=== PATIENT | male | born 1960 | race Caucasian/White ===

== ENCOUNTER → 2019-04-27 17:13 | Outpatient (CLI) | payer OTHER, SELFPAY ==
--- NOTE | ~2019-04-27 | XR_ITS ---
XR thoracic spine 3V 04/27/2019 17:34 Indication: Back pain Procedure: 3 views of the thoracic spine Comparison: 10/20/2018 Findings: Mild thoracic spondylosis with bridging osteophytes at multiple lower thoracic spine levels . Pedicles intact. No paraspinal soft tissue abnormality. Surrounding osseous structures are unremark able. No paraspinal soft tissue abnormality. No acute fracture or traumatic malalignment. Impression: 1: Mild thoracic spondylosis. Reviewed, dictated and finalized at location A. LTY CANDY MAKER Impression: 1: Mild thoracic spondylosis.
== END ==
PROVIDERS: PCP Family Medicine; Visit Provider Family Medicine
DX: M47.894 Other spondylosis, thoracic region (principal)
CPT/HCPCS: 72072

== ENCOUNTER 2019-05-04 14:21 | Outpatient (CLI) | payer OTHER, SELFPAY ==
--- NOTE | ~2019-05-04 | CT_ITS ---
EXAMINATION: CT abdomen pelvis wo con DATE: 05/04/2019 14:50 INDICATION: Acute right flank pain TECHNIQUE: Computed tomography (CT) of the abdomen and pelvis was performed without intravenous contr ast. Automated exposure control and iterative reconstruction technique were employed. Exam dose: 914 .88 mGy-cm total exam DLP. COMPARISON: 06/23/2009 CT abdomen pelvis FINDINGS: There is discoid atelectasis and/or scarring at the lung bases. Normal heart size. No pericardial or pleural effusion. Status post cholecystectomy. No bile duct or pancreatic duct dilatation. No hepatic, splenic, pancrea tic, adrenal or renal space-occupying mass lesion is evident on this limited noncontrast examination. No urinary tract calculus or hydroureteronephrosis. Normal caliber of the abdominal aorta. No intraperitoneal or retroperitoneal or pelvic mass lesion or adenopathy or ascites is detected. Mild prostate enlargement and calcification. The urinary bladder is unremarkable. There is a dog ear of the right side of the urinary bladder at the right inguinal area. Small fat-containing right ingui nal hernia. No bowel obstruction or intraperitoneal free air. Small fat-containing umbilical hernia. Diffuse idiopathic skeletal hyperostosis of the thoracic and lumbar spine. No suspicious osteolytic o r osteoblastic lesions are noted. IMPRESSION: No urinary tract calculus or hydroureteronephrosis is detected Status post cholecystectomy Reviewed, dictated and finalized at Location A. Reviewed, dictated and finalized at location B. [employer]OR [employer]GICAL
== END 2019-05-04 14:22 | disposition home or self-care (01) ==
PROVIDERS: PCP Family Medicine; Visit Provider Family Medicine
DX: R10.9 Unspecified abdominal pain (principal); Z90.49 Acquired absence of other specified parts of digestive tract
CPT/HCPCS: 74176

== ENCOUNTER 2020-11-24 10:27 | Outpatient (RCR) | payer OTHER, SELFPAY ==
[2020-11-24 10:39] VITALS: BP 127/65; PULSE 88; RESP 18; TEMP 36.4; O2SAT 94
[2020-11-24] MEDS: ACETAMINOPHEN 325 MG TABLET 650 MG PO (10:40)
[2020-11-24] MEDS: diphenhydrAMINE HCl CAP 25 MG CAPSULE PO (10:41)
[2020-11-24] MEDS: FAMOTIDINE 20 MG TABLET PO (10:41)
--- NOTE | 2020-11-24 10:58 | PC.NURSE ---
Patient states he has not received any COVID vaccinations and he does not intend to in the future.
[2020-11-24 12:18] VITALS: BP 117/66; PULSE 69; RESP 18; TEMP 36.3; O2SAT 96
--- NOTE | 2020-11-25 10:37 | PC.NURSE ---
Called patient to follow-up on yesterday's antibody infusion. Patient states he has a headache and upset stomach. RN recommended he take Tylenol and Benadryl as directed on discharge paperwork and patient verbalized understanding.
== END 2020-11-24 16:00 | disposition home or self-care (01) ==
LOC: AMCINF 10:27
PROVIDERS: PCP Family Medicine; Visit Provider Internal Medicine Hematology & Oncology
DX: Z23 Encounter for immunization (principal); U07.1 COVID-19; I10 Essential (primary) hypertension; E11.9 Type 2 diabetes mellitus without complications
CPT/HCPCS: A9270; J7050; M0243

== ENCOUNTER 2020-11-26 23:04 | Inpatient (IN) | payer OTHER, SELFPAY ==
--- NOTE | ~2020-11-26 | XR_ITS ---
XR chest 1V portable DATE: 11/26/2020 23:40 INDICATION: Dyspnea TECHNIQUE: Portable upright AP chest on 11/18/2020 at 23 30 cm COMPARISON: 03/16/2015 two-view chest FINDINGS: Extensive diffuse bilateral patchy pulmonary infiltrates are noted, consistent with severe bilateral multifocal pneumonia. Normal heart size. No pleural effusion. No pneumothorax. Degenerative spurring of the thoracic spine. IMPRESSION: Extensive diffuse patchy bilateral pulmonary infiltrates consistent with multifocal bilat eral lung, likely due to Covid 19 Reviewed, dictated and finalized at location A. IMPRESSION: Extensive diffuse patchy bilateral pulmonary infiltrates consistent with multifocal bilateral lung, likely due to Covid 19
--- NOTE | ~2020-11-26 | CT_ITS ---
EXAMINATION: CTA chest PE protocol DATE: 11/27/2020 00:46 INDICATION: Dyspnea TECHNIQUE: Computed tomography (CT) pulmonary angiogram of the chest was performed with 100 mL Omnipa que-350 intravenous contrast. Additional 3D reconstructions utilizing coronal maximum intensity proje ction (MIP) were performed. Automated exposure control and iterative reconstruction technique were em ployed. The dose-length product was 1013.75 mGy-cm. COMPARISON: None FINDINGS: Excellent contrast opacification of the pulmonary arteries. There is mild streak artifact from dense contrast in the superior vena cava and right atrium. Mild scattered respiratory motion artifact which decreases sensitivity in some of the smaller subsegmental pulmonary arteries in the lower lung zones . No pulmonary embolism. Extensive patchy groundglass opacities throughout both lungs suspicious for COVID pneumonia. Differential would include less likely pulmonary edema. No pleural effusion or pneum othorax. Heart size is normal. No pericardial effusion. Thoracic aorta is normal in caliber with no d issection. Mild mediastinal and right hilar lymphadenopathy which is likely reactive. Systemic clips the gallbladder fossa. There are bridging osteophytes at multiple levels in the spine, consistent wit h diffuse idiopathic skeletal hyperostosis (DISH). IMPRESSION: 1. No pulmonary embolism. 2. Extensive patchy groundglass opacities throughout both lungs and favor COVID pneumonia over pulmon sandrine edema. 3. Likely reactive mediastinal and right hilar lymphadenopathy. Reviewed, dictated and finalized at location A. IMPRESSION: 1. No pulmonary embolism. 2. Extensive patchy groundglass opacities throughout both lungs and favor COVID pneumonia over pulmonary edema. 3. Likely reactive mediastinal and right hilar lymphadenopathy.
--- NOTE | ~2020-11-26 | CT_ITS ---
EXAMINATION: CT abdomen pelvis w con EXAM DATE: 11/28/2020 09:49 INDICATION: RUQ and flank pain. TECHNIQUE: Spiral CT of the abdomen and pelvis was performed following intravenous injection of 100 m L Omnipaque 350. Axial, coronal and sagittal images of the abdomen and pelvis were reviewed. The do se-length product (DLP) for this examination was 895.76 mGy-cm. The exposure was tailored according to patient size (auto mA exposure control), and iterative reconstruction (ASIR) was used as additiona l dose reduction technique. Comparison is made to prior examination from 06/23/2009, 05/04/2019. FINDINGS: The liver, spleen, adrenal glands and pancreas are unremarkable. There are cholecystectomy clips. There is 1.5 cm hypodensity upper pole right kidney, most likely cyst with septation. No hyd ronephrosis. The prostate is unremarkable. There is small right inguinal fat-containing hernia. Th e bladder is unremarkable. There is no retroperitoneal or pelvic lymphadenopathy. There is mild sc attered arteriosclerotic disease. Small umbilical fat-containing hernia. There are no findings to suggest appendicitis. There is mild to moderate scattered colonic diverticul osis. There is no adjacent inflammatory change to suggest diverticulitis. The stomach and small marita l are unremarkable. There is expected amount of colonic stool. No free intraperitoneal gas. The heart is normal in size. There are no pericardial or pleural effusions. Bilateral patchy peripheral predominant groundglass opacities Appearance is typical of early stage C OVID 19 pneumonia. Less likely acute possibilities include influenza, pulmonary edema or hemorrhage. Please clinically correlate and test as appropriate. IMPRESSION Patchy bilateral groundglass airspace disease probably COVID 19 pneumonia given community prevalence. Less likely possibilities above. There are no osteoblastic or osteolytic lesions identif ied. IMPRESSION: 1. Basilar groundglass opacity suspicious for COVID pneumonia. 2. Small umbilical, and right inguinal fat-containing hernias. 3. Scattered colonic diverticulosis. Reviewed, dictated and finalized at location B. IMPRESSION Patchy bilateral groundglass airspace disease probably COVID 19 pne umonia given community prevalence. Less likely possibilities above. There are n o osteoblastic or osteolytic lesions identified.
--- NOTE | ~2020-11-26 | XR_ITS ---
EXAMINATION: XR chest 1V portable INDICATION: Chest pain and cough TECHNIQUE: Portable AP chest at 0541 hours COMPARISON: 11/26/2020 FINDINGS: There are diffuse opacities throughout all lung zones with interval worsening in the right lung. No pleural effusion or pneumothorax is identified. The cardiomediastinal silhouette is normal. IMPRESSION: 1. Diffuse lung disease with interval worsening, likely worsening COVID 19 pneumonia. Reviewed, dictated and finalized at location A. IMPRESSION: 1. Diffuse lung disease with interval worsening, likely worsening COVID 19 pneu monia.
[2020-11-26 23:26] VITALS: BP 135/74; PULSE 94; RESP 22; TEMP 36.8; O2SAT 93
--- NOTE | 2020-11-26 23:30 | ECG_ITS ---
Measurements Intervals [place] Rate: 92 P: 49 TX: 181 QRS: 56 QRSD: 88 T: 37 QT: 345 QTc: 428 Interpretive Statements SINUS RHYTHM INCOMPLETE RIGHT BUNDLE BRANCH BLOCK BORDERLINE ECG Electronically Signed On 11-27-2020 8:25:53 CDT by Yemi Morales D.O.
[2020-11-26 23:33] VITALS: RESP 17
[2020-11-26 23:38] VITALS: PULSE 95; RESP 26; O2SAT 93
[2020-11-26 23:45] VITALS: PULSE 87; RESP 24; O2SAT 92
[2020-11-26 23:46] VITALS: BP 125/80; PULSE 89; RESP 22; O2SAT 93
[2020-11-26 23:49] VITALS: PULSE 89
--- NOTE | 2020-11-26 23:55 | ED.WEAKNESS ---
HPI - Weakness General Chief complaint: Weakness Stated complaint: covid+ going down hill Time Seen by Provider: 11/26/20 23:32 Source: RN notes reviewed History of Present Illness HPI Narrative: Patient presents emergency department from home for weakness and shortness of breath. Patient states he tested positive with Covid 14 days ago. He states that he has had continued weakness and dyspnea that have worsened today he states that he had initially been on a Z-Pablo as well as ivermectin and steroids but is no longer on these he states he has been having intermittent fever for which he has been taking Tylenol he denies any abdominal pain nausea vomiting chest pain or any other symptoms he states he does not have any Related Data Home Medications Medication Instructions Recorded Confirmed simvastatin 10 mg tablet 10 mg PO DAILY 02/12/19 11/24/20 Allergies Allergy/AdvReac Type Severity Reaction Status Date / Time No Known Allergies Allergy Verified 11/24/20 10:52 Review of Systems Review of Systems: Gen.: Reports intermittent fever ENT: Denies congestion Respiratory: Shortness of breath CV: Denies chest pain or palpitations GI: Denies abdominal pain nausea, emesis or diarrhea Musculoskeletal: Denies back pain or muscle pain Neuro: Denies numbness, tingling, weakness or focal weakness Skin: Denies rash Except as documented, all other systems reviewed and negative [facility] Past Medical History Medical History Acute abdominal pain in right flank Acute bronchitis Acute non-recurrent maxillary sinusitis Bleeding from the nose Chronic left shoulder pain Chronic thoracic back pain Colon cancer screening Controlled diabetes mellitus type II without complication COVID-19 (11/15/20) rapid test positive on 11/18/2020 Diabetes Elevated liver enzymes Encounter for prostate cancer screening Essential (primary) hypertension Insomnia Mixed hyperlipidemia GALARZA (nonalcoholic steatohepatitis) Otitis externa Seasonal allergic rhinitis SOS (sinusoidal obstruction syndrome) Tinea pedis UTI (urinary tract infection) Vision loss Surgical History Surgical History (Updated 02/24/19 @ 09:40 by Tarsha Barber) H/O repair of rotator cuff Family History Family History Father Patient's father is , Onset Age: 82 Family history of malignant neoplasm Sibling Patient's brother is , Onset Age: 58 Mother Cerebrovascular accident, Onset Age: 77 Grandparent Cerebrovascular accident, Onset Age: 58 Family history of malignant neoplasm Other Diabetes mellitus Family history of arthritis Family history of cardiovascular disease Social History Social History Smoking packs per day: 3 Smoking cigarettes per day: 60.0 Years smoked: 40 Smoking pack-years: 120.00 Smoking status: Former smoker Tobacco type: cigarettes and cigars Smoking end date: 04/01/02 Additional smoking assessment comments: 2 packs of cigarettes and 1 pack cigars every day Alcohol intake: current Spiritual care concerns: No Exam Narrative: APPEARANCE: No acute distress, nontoxic, resting in bed EYES: EOMI HEENT: Normocephalic, atraumatic, OMM RESPIRATORY: No respiratory distress Clear to auscultation bilaterally with no rhonchi wheezing or rales. CARDIOVASCULAR: Regular rate and rhythm without murmurs rubs or gallops. ABDOMINAL: Soft, nontender, nondistended, no rebound or guarding MUSCULOSKELETAl: Moves all extremities. No clubbing, cyanosis or edema. NEURO: Awake and alert. Following commands, speech normal, no focal deficits SKIN:: Warm, dry. No rashes lesions or abrasions PSYCHIATRIC: Normal affect/mood, Course Course Emergency Course: Patient with walking pulse ox in ED with oxygen saturations down into 87-88 will admit at this
[2020-11-27] VITALS (22 sets, daily range): BP systolic 122–145; BP diastolic 69–87; PULSE 77–97; RESP 17–31; TEMP 36.1–37.4; O2SAT 88–95; BMI 32.6
[2020-11-27 00:02] LABS: Basophils Percent Auto 0.3 % (0.2-1.2); Eosinophils Percent Auto 0.3 % (0-4.4); Hemoglobin 15.2 g/dL (14.0-18.0); Immature Granulocyte Absolute 0.09 K/mm3 (0.00-0.031); Immature Granulocyte Percent A 1.4 % (0-0.5); Immature Platelet Fraction Pct 11.5 % (0.9-11.2); Lymphocytes Absolute Auto 1.65 K/mm3 (0.9-3.2); Lymphocytes Percent Auto 25.9 % (18.3-44.2); Mean Corpuscular HGB Conc 34.5 g/dl (32-36); Mean Corpuscular Hemoglobin 29.6 pg (26-34); Mean Corpuscular Volume 85.8 fl (80-100); Monocytes Absolute Auto 0.5 K/mm3 (0.1-0.6); Monocytes Percent Auto 7.9 % (2.6-8.5); Neutrophils Absolute Auto 4.1 K/mm3 (1.3-6.7); Neutrophils Percent Auto 64.2 % (45.5-73.1); Red Blood Count 5.13 M/mm3 (4.6-6.20); Red Cell Distribution Width 12.2 % (11.5-14.5); White Blood Count 6.4 K/mm3 (4.5-10.0)
[2020-11-27 00:14] LABS: Alanine Aminotransferase 101 U/L (4-50); Albumin Level 3.8 g/dL (3.5-5.1); Alkaline Phosphatase 51 U/L (38-126); Anion Gap 7 mmol/L (8-16); Aspartate Amino Transferase 109 U/L (17-59); Bilirubin,Total 0.7 mg/dL (0.2-1.3); Blood Urea Nitrogen 8 mg/dL (9-20); Calcium 8.4 mg/dL (8.4-10.2); Carbon Dioxide 25 mmol/L (22-30); Chloride 95 mmol/L (98-107); Estimated CRCL calculation 134 ml/min; Estimated Glomerular Filt Rate > 60; Glucose 183 mg/dL (65-110); INR 0.9; Lactic Acid Reflex 1.2 mmol/L (0.7-2.1); Potassium 3.7 mmol/L (3.4-5.0); Prothrombin Time 12.4 Seconds (11.1-14.7); Sodium 127 mmol/L (137-145)
[2020-11-27 00:15] LABS: Partial Thromboplastin Time 28.4 SECONDS (22.3-36.8)
[2020-11-27 00:17] LABS: CRP 4.2 mg/dL (<1.0); D Dimer 1.32 ug/mL (<0.48); Lactate Dehydrogenase 1707 U/L (313-618)
--- NOTE | 2020-11-27 02:40 | PC.NURSE ---
pt amblated by fur feeder. O2 sats dropped to 88% on RA. Pt placed on 2L O2 per nc per verbal order from ED MD.
--- NOTE | 2020-11-27 04:00 | PC.NURSE ---
This patient, Ervin Fuentes, was admitted to 3 [facility] Surg Room 328-01 @0355. Patient/family oriented to hospital policies and general routines including ID bracelet, bed and alarms, visiting hours, pain management, procedures, bathroom and other care routines, personal items, smoking policy, room service/diet, and visiting hours. Information on how to activate the Rapid Response Team has been discussed. Patient/Family are encouraged to report perceived risks to care and to ask questions if they do not understand what they are told or what they should do.
[2020-11-27] MEDS: ALBUTEROL SULFATE (*SP) AEROSOL 1 PUFF 2 PUFF INHALATION ×4 (04:03→20:57)
--- NOTE | 2020-11-27 08:39 | PM.IMHP ---
H&P: HPI History of Present Illness Date/Time: 11/27/20 08:39 Chief Complaint: Shortness of breath and weakness Narrative: This is a very pleasant 52-year-old gentleman with past medical history of type 2 diabetes mellitus, hypertension, hyperlipidemia, nonalcoholic steatohepatitis, who presented to the emergency department last night with weakness and shortness of breath that have progressed over the past 4 days. He was diagnosed with COVID-19 on 11/15. He reportedly was on her with azithromycin as well as ivermectin at some point but continued to have shortness of breath. He also tells me he developed some right upper quadrant abdominal pain and feels quite tender. No nausea or vomiting. No chest pain. Intermittent cough. On presentation to the emergency department he had saturation of oxygen 87-88%. He was placed on oxygen by nasal cannula with improvement and has pulse oximetry to the 90s. His initial blood work showed hemoglobin 15.2, WBC 6.4, INR 0.9, sodium 137, potassium 3.7, chloride 95, bicarb 25, anion gap 7, BUN 8, creatinine 0.7, calcium 8.4 AST 109, ALT 101, total bilirubin 0.7, alk-phos 51, albumin 3.8. His initial blood pressure was 135/74 with a heart rate of 94. He was afebrile. Review of Systems Review of Systems: All systems reviewed & are unremarkable except as noted in HPI and below PMFSH Past Medical History Medical History Acute abdominal pain in right flank Acute bronchitis Acute non-recurrent maxillary sinusitis Bleeding from the nose Chronic left shoulder pain Chronic thoracic back pain Colon cancer screening Controlled diabetes mellitus type II without complication COVID-19 (11/15/20) rapid test positive on 11/18/2020 Diabetes Elevated liver enzymes Encounter for prostate cancer screening Essential (primary) hypertension Insomnia Mixed hyperlipidemia GALARZA (nonalcoholic steatohepatitis) Otitis externa Seasonal allergic rhinitis SOS (sinusoidal obstruction syndrome) Tinea pedis UTI (urinary tract infection) Vision loss Surgical History Surgical History H/O repair of rotator cuff Family History Family History Father Patient's father is , Onset Age: 82 Family history of malignant neoplasm Sibling Patient's brother is , Onset Age: 58 Mother Cerebrovascular accident, Onset Age: 77 Grandparent Cerebrovascular accident, Onset Age: 58 Family history of malignant neoplasm Other Diabetes mellitus Family history of arthritis Family history of cardiovascular disease Social History Social History Smoking packs per day: 3 Smoking cigarettes per day: 60.0 Years smoked: 40 Smoking pack-years: 120.00 Smoking status: Former smoker Tobacco type: cigarettes Alcohol intake: never Substance use: never Gender identity (if verbalized by the patient): Male Spiritual care concerns: No Meds Home Medications and Allergies Home Medications Medication Instructions Recorded Confirmed Type simvastatin 10 mg tablet 10 mg PO DAILY 02/12/19 11/27/20 History irbesartan 150 mg tablet 150 mg PO DAILY #90 tablet 10/21/20 11/27/20 Rx albuterol sulfate 2 inh INHALATION Q4H PRN 11/27/20 11/27/20 History metformin 500 mg PO BID 11/27/20 11/27/20 History zolpidem 10 mg PO HS PRN 11/27/20 11/27/20 History Allergies Allergy/AdvReac Type Severity Reaction Status Date / Time No Known Allergies Allergy Verified 11/24/20 10:52 Vital Signs Vital Signs - 24 hr 11/26/20 23:26 11/26/20 23:33 11/26/20 23:38 Temperature 98.3 F Pulse Rate 94 95 Respiratory Rate 22 H 17 26 H Blood Pressure 135/74 Pulse Oximetry 93 93 11/26/20 23:45 11/26/20 23:46 11/26/20 23:49 Temperature Pulse R
[2020-11-27] MEDS: SODIUM CHLORIDE 0.9% IV 1,000 ML 75 ML IV CONT ×2 (10:19→23:49)
[2020-11-27] MEDS: ENOXAPARIN 40 MG/0.4 ML SYRINGE SUB-Q (10:20)
[2020-11-27] MEDS: IRBESARTAN 150 MG TABLET PO (10:20)
[2020-11-27] MEDS: SIMVASTATIN 10 MG TABLET PO (10:20)
[2020-11-27 12:52] LABS: Glucose Point of Care 191 mg/dl (65-105)
[2020-11-27 16:31] LABS: Glucose Point of Care 232 mg/dl (65-105)
[2020-11-27 17:41] LABS: Procalcitonin 0.1 ng/mL
[2020-11-27] MEDS: INSULIN ASPART (*BKC) 100 UNITS/ML SUB-Q (17:42)
[2020-11-28] VITALS (10 sets, daily range): BP systolic 103–157; BP diastolic 53–86; PULSE 66–99; RESP 18–20; TEMP 36.1–37.2; O2SAT 86–97
[2020-11-28] MEDS: ALBUTEROL SULFATE (*SP) AEROSOL 1 PUFF 2 PUFF INHALATION ×4 (01:09→21:59)
[2020-11-28 01:41] LABS: Glucose Point of Care 248 mg/dl (65-105)
[2020-11-28 06:44] LABS: Basophils Percent Auto 0.4 % (0.2-1.2); Eosinophils Percent Auto 0.1 % (0-4.4); Hematocrit 41.5 % (42.0-52.0); Hemoglobin 13.8 g/dL (14.0-18.0); Immature Granulocyte Absolute 0.13 K/mm3 (0.00-0.031); Immature Granulocyte Percent A 1.6 % (0-0.5); Immature Platelet Fraction Pct 16.6 % (0.9-11.2); Lymphocytes Absolute Auto 1.44 K/mm3 (0.9-3.2); Lymphocytes Percent Auto 18.1 % (18.3-44.2); Mean Corpuscular HGB Conc 33.3 g/dl (32-36); Mean Corpuscular Hemoglobin 29.2 pg (26-34); Mean Corpuscular Volume 87.9 fl (80-100); Mean Platelet Volume 11.1 fl (7.4-10.4); Monocytes Absolute Auto 0.6 K/mm3 (0.1-0.6); Monocytes Percent Auto 7.8 % (2.6-8.5); Neutrophils Absolute Auto 5.7 K/mm3 (1.3-6.7); Platelet Count Result 51 k/mm3 (150-375); Red Blood Count 4.72 M/mm3 (4.6-6.20); Red Cell Distribution Width 11.9 % (11.5-14.5)
[2020-11-28 07:06] LABS: Alanine Aminotransferase 85 U/L (4-50); Albumin Level 3.6 g/dL (3.5-5.1); Alkaline Phosphatase 46 U/L (38-126); Anion Gap 9 mmol/L (8-16); Aspartate Amino Transferase 74 U/L (17-59); Bilirubin,Total 0.9 mg/dL (0.2-1.3); Blood Urea Nitrogen 9 mg/dL (9-20); CRP 7.9 mg/dL (<1.0); Calcium 8.1 mg/dL (8.4-10.2); Carbon Dioxide 24 mmol/L (22-30); Chloride 100 mmol/L (98-107); Estimated CRCL calculation 123 ml/min; Estimated Glomerular Filt Rate > 60; Glucose 187 mg/dL (65-110); Lactate Dehydrogenase 1298 U/L (313-618); Potassium 3.9 mmol/L (3.4-5.0); Sodium 133 mmol/L (137-145)
[2020-11-28 08:14] LABS: Glucose Point of Care 185 mg/dl (65-105)
[2020-11-28] MEDS: SIMVASTATIN 10 MG TABLET PO (10:20)
[2020-11-28] MEDS: IRBESARTAN 150 MG TABLET PO (10:21)
[2020-11-28] MEDS: ENOXAPARIN 40 MG/0.4 ML SYRINGE SUB-Q (11:59)
[2020-11-28 12:25] LABS: Glucose Point of Care 190 mg/dl (65-105)
--- NOTE | 2020-11-28 12:45 | PM.IMPN ---
Progress Note: A&P Assessment and Plan (1) Acute respiratory failure with hypoxia: Code(s): J96.01 - Acute respiratory failure with hypoxia Status: Acute Assessment and Plan: Chest x-ray on presentation with extensive bilateral patchy pulmonary infiltrates O2 support for hypoxemia Supportive measures Monitor resp status Continue home albuterol inhaler (2) COVID-19: Code(s): U07.1 - COVID-19 Status: Acute Assessment and Plan: Dexamethasone Outside window for Remdisivir O2 support for hypoxemia Supportive measures Monitor resp status (3) Acute abdominal pain in right flank: Code(s): R10.9 - Unspecified abdominal pain Status: Acute Assessment and Plan: This is of new onset. CT scan of the abdomen 11/11 show acute findings. Abdominal pain improved. (4) Controlled diabetes mellitus type II without complication: Qualifiers: Diabetes mellitus termite renewal inspector insulin use: without residential use Qualified Code(s): E11.9 - Type 2 diabetes mellitus without complications Code(s): E11.9 - Type 2 diabetes mellitus without complications Status: Acute Assessment and Plan: Hold metformin for now. SSI Glucose AccuChecks Hemoglobin A1c 7. (5) Essential (primary) hypertension: Code(s): I10 - Essential (primary) hypertension Status: Acute Assessment and Plan: Continue home Irbestartan (6) Mixed hyperlipidemia: Code(s): E78.2 - Mixed hyperlipidemia Status: Acute Assessment and Plan: Continue home Simvastatin (7) Full code status: Code(s): Z78.9 - Other specified health status Status: Acute Assessment and Plan: Discussed on admission (8) DVT prophylaxis: Code(s): Z29.9 - Encounter for prophylactic measures, unspecified Status: Acute Assessment and Plan: Lovenox Subjective Date/time seen: 11/28/20 12:45 Feels better, shortness of breath improved, he is down to 7 L of oxygen by nasal cannula. Hemodynamically stable. Afebrile. Review of Systems Review of Systems: All systems reviewed & are unremarkable except as noted in HPI and below Exam Narrative: Gen: Alert, NAD Abd: Soft, TTP RUQ Heart: RRR Lungs: CTAB Ext: No bilateral lower extremity edema Objective Data Vital Signs Vital Signs: Vital Signs - 24 hr 11/27/20 13:40 11/27/20 14:11 11/27/20 16:00 Temperature 98.6 F 98.6 F Pulse Rate 96 94 Respiratory Rate 20 20 Blood Pressure 145/77 H 137/69 Pulse Oximetry 90 93 90 11/27/20 20:00 11/27/20 21:05 11/28/20 00:00 Temperature 96.9 F L 97.1 F L Pulse Rate 81 87 92 Respiratory Rate 20 20 Blood Pressure 145/76 H 134/74 Pulse Oximetry 93 91 96 11/28/20 01:12 11/28/20 04:00 11/28/20 08:00 Temperature 97 F L 98.9 F Pulse Rate 80 77 73 Respiratory Rate 20 20 Blood Pressure 132/86 124/69 Pulse Oximetry 92 91 11/28/20 10:03 11/28/20 10:19 11/28/20 12:00 Temperature 98.1 F Pulse Rate 87 Respiratory Rate 20 Blood Pressure 103/53 L Pulse Oximetry 86 L 91 93 Intake/Output Intake/Output: Intake & Output 11/25/20 11/26/20 11/27/20 11/28/20 23:59 23:59 23:59 23:59 Intake Total 2920 1040 Output Total 900 1600 Balance 2020 -560 Meds/Results Medications: Active Medications Generic Name Dose Route Start Last Admin Trade Name Freq PRN Reason Stop Dose Admin Acetaminophen 650 mg 11/27/20 08:52 Acetaminophen 325 Mg Tablet PO Q4H PRN Mild Pain (1-3) or Fever Albuterol 2 puff 11/27/20 08:00 11/28/20 10:02 Albuterol Sulfate (*Sp) Aerosol 1 Puff INHALATION 2 puff Q6HRT AMY Administration Albuterol 2 puff 11/27/20 08:56 Albuterol Sulfate (*Sp) Aerosol 1 Puff INHALATION Q4H PRN shortness of breath or wheezing Dexamethasone Sodium Phosphate 6 mg 11/27/20 09:00 11/28/20 10:21 Dexamethasone Sod Phos Inj 10 Mg/Ml 1 Ml Vial IV PUSH
[2020-11-28 16:49] LABS: Glucose Point of Care 280 mg/dl (65-105)
[2020-11-28] MEDS: INSULIN ASPART (*BKC) 100 UNITS/ML SUB-Q (17:18)
[2020-11-29] VITALS (9 sets, daily range): BP systolic 112–156; BP diastolic 63–87; PULSE 71–112; RESP 16–20; TEMP 36.3–37.2; O2SAT 92–97
[2020-11-29] MEDS: ALBUTEROL SULFATE (*SP) AEROSOL 1 PUFF 2 PUFF INHALATION ×4 (02:36→20:47)
[2020-11-29 03:23] LABS: Glucose Point of Care 273 mg/dl (65-105)
[2020-11-29 06:57] LABS: Basophils Percent Auto 0.3 % (0.2-1.2); Eosinophils Percent Auto 0.2 % (0-4.4); Hematocrit 44.4 % (42.0-52.0); Hemoglobin 14.9 g/dL (14.0-18.0); Immature Granulocyte Absolute 0.16 K/mm3 (0.00-0.031); Immature Granulocyte Percent A 1.6 % (0-0.5); Immature Platelet Fraction Pct 11.5 % (0.9-11.2); Lymphocytes Absolute Auto 1.73 K/mm3 (0.9-3.2); Lymphocytes Percent Auto 17.4 % (18.3-44.2); Mean Corpuscular HGB Conc 33.6 g/dl (32-36); Mean Corpuscular Hemoglobin 29.2 pg (26-34); Mean Corpuscular Volume 86.9 fl (80-100); Monocytes Absolute Auto 0.7 K/mm3 (0.1-0.6); Monocytes Percent Auto 6.8 % (2.6-8.5); Neutrophils Absolute Auto 7.3 K/mm3 (1.3-6.7); Neutrophils Percent Auto 73.7 % (45.5-73.1); Platelet Count Result 46 k/mm3 (150-375); Red Blood Count 5.11 M/mm3 (4.6-6.20); Red Cell Distribution Width 11.8 % (11.5-14.5)
[2020-11-29 07:10] LABS: Alanine Aminotransferase 103 U/L (4-50); Albumin Level 3.9 g/dL (3.5-5.1); Alkaline Phosphatase 50 U/L (38-126); Anion Gap 9 mmol/L (8-16); Aspartate Amino Transferase 79 U/L (17-59); Bilirubin,Total 0.7 mg/dL (0.2-1.3); Blood Urea Nitrogen 10 mg/dL (9-20); Calcium 8.7 mg/dL (8.4-10.2); Carbon Dioxide 25 mmol/L (22-30); Chloride 97 mmol/L (98-107); Estimated CRCL calculation 123 ml/min; Estimated Glomerular Filt Rate > 60; Glucose 178 mg/dL (65-110); Potassium 3.8 mmol/L (3.4-5.0); Sodium 131 mmol/L (137-145)
[2020-11-29 08:06] LABS: Glucose Point of Care 162 mg/dl (65-105)
[2020-11-29] MEDS: IRBESARTAN 150 MG TABLET PO (08:14)
[2020-11-29] MEDS: SIMVASTATIN 10 MG TABLET PO (08:14)
[2020-11-29] MEDS: ENOXAPARIN 40 MG/0.4 ML SYRINGE SUB-Q (08:14)
[2020-11-29 08:30] LABS: Platelet Clumps Present; Platelet Estimate Decreased (Adequate)
[2020-11-29 11:57] LABS: Glucose Point of Care 246 mg/dl (65-105)
[2020-11-29] MEDS: INSULIN ASPART (*BKC) 100 UNITS/ML SUB-Q ×2 (12:03→17:41)
--- NOTE | 2020-11-29 12:16 | PM.IMPN ---
Progress Note: A&P Assessment and Plan (1) Acute respiratory failure with hypoxia: Code(s): J96.01 - Acute respiratory failure with hypoxia Status: Acute Assessment and Plan: Chest x-ray on presentation with extensive bilateral patchy pulmonary infiltrates O2 support for hypoxemia Supportive measures Monitor resp status Continue home albuterol inhaler (2) COVID-19: Code(s): U07.1 - COVID-19 Status: Acute Assessment and Plan: Dexamethasone Outside the window for Remdisivir O2 support for hypoxemia Supportive measures Monitor resp status (3) Acute abdominal pain in right flank: Code(s): R10.9 - Unspecified abdominal pain Status: Acute Assessment and Plan: This is of new onset. CT scan of the abdomen 11/11 show acute findings. Abdominal pain improved. (4) Controlled diabetes mellitus type II without complication: Qualifiers: Diabetes mellitus fci insulin use: without fci use Qualified Code(s): E11.9 - Type 2 diabetes mellitus without complications Code(s): E11.9 - Type 2 diabetes mellitus without complications Status: Acute Assessment and Plan: SSI Glucose AccuChecks Hemoglobin A1c 7. His home metformin was initially held, however given clinical stability, resume. Monitor closely given dexamethasone on board, increased SSI to moderate intensity (5) Essential (primary) hypertension: Code(s): I10 - Essential (primary) hypertension Status: Acute Assessment and Plan: Continue home Irbestartan, adjust as needed (6) Mixed hyperlipidemia: Code(s): E78.2 - Mixed hyperlipidemia Status: Acute Assessment and Plan: Continue home Simvastatin (7) Full code status: Code(s): Z78.9 - Other specified health status Status: Acute Assessment and Plan: Discussed on admission (8) DVT prophylaxis: Code(s): Z29.9 - Encounter for prophylactic measures, unspecified Status: Acute Assessment and Plan: Lovenox Subjective Date/time seen: 11/29/20 12:16 Uneventful night. Hemodynamically stable. Reports his breathing is slightly improved he is on 7 L by high-flow nasal cannula this morning. Review of Systems Review of Systems: All systems reviewed & are unremarkable except as noted in HPI and below Exam Narrative: Gen: Alert, NAD Abd: Soft, NT, ND Heart: RRR Lungs: CTAB Ext: No bilateral lower extremity edema Objective Data Vital Signs Vital Signs: Vital Signs - 24 hr 11/28/20 16:00 11/28/20 20:00 11/28/20 22:00 Temperature 97.9 F 98.2 F 98.1 F Pulse Rate 90 80 85 Respiratory Rate 20 20 18 Blood Pressure 124/74 140/73 157/82 H Pulse Oximetry 97 94 90 11/29/20 00:00 11/29/20 04:00 11/29/20 05:45 Temperature 97.7 F Pulse Rate 71 112 H Respiratory Rate 20 Blood Pressure 156/87 H Pulse Oximetry 96 96 11/29/20 08:00 11/29/20 12:00 Temperature 98.3 F 98.1 F Pulse Rate 80 90 Respiratory Rate 16 20 Blood Pressure 112/69 120/72 Pulse Oximetry 94 94 Intake/Output Intake/Output: Intake & Output 11/26/20 11/27/20 11/28/20 11/29/20 23:59 23:59 23:59 23:59 Intake Total 2920 3590 2880 Output Total 900 2900 600 Balance 2020 690 2280 Meds/Results Medications: Active Medications Generic Name Dose Route Start Last Admin Trade Name Freq PRN Reason Stop Dose Admin Acetaminophen 650 mg 11/27/20 08:52 Acetaminophen 325 Mg Tablet PO Q4H PRN Mild Pain (1-3) or Fever Albuterol 2 puff 11/27/20 08:00 11/29/20 09:24 Albuterol Sulfate (*Sp) Aerosol 1 Puff INHALATION 2 puff Q6HRT AMY Administration Albuterol 2 puff 11/27/20 08:56 Albuterol Sulfate (*Sp) Aerosol 1 Puff INHALATION Q4H PRN shortness of breath or wheezing Dexamethasone Sodium Phosphate 6 mg 11/27/20 09:00 11/29/20 08:13 Dexamethasone Sod Phos Inj 10 Mg/Ml 1 Ml Vial IV PUSH 12/06/20 09:01
[2020-11-29 17:25] LABS: Glucose Point of Care 244 mg/dl (65-105)
--- NOTE | 2020-11-29 17:46 | PC.NURSE ---
insulin for 1700 11/29/20 given on the moderate corrective dose as ordered by dr. anderson.
[2020-11-29] MEDS: metFORMIN HCL XR 500 MG TAB.SR.24H 1000 MG PO (17:51)
[2020-11-29] MEDS: ACETAMINOPHEN 325 MG TABLET 650 MG PO (23:00)
[2020-11-30] VITALS (9 sets, daily range): BP systolic 96–133; BP diastolic 66–72; PULSE 64–134; RESP 18–20; TEMP 36–36.9; O2SAT 76–96
[2020-11-30] MEDS: ALBUTEROL SULFATE (*SP) AEROSOL 1 PUFF 2 PUFF INHALATION ×4 (02:15→20:23)
[2020-11-30 02:25] LABS: Glucose Point of Care 163 mg/dl (65-105)
[2020-11-30 06:55] LABS: Basophils Percent Auto 0.2 % (0.2-1.2); Eosinophils Percent Auto 0.2 % (0-4.4); Hematocrit 41.2 % (42.0-52.0); Hemoglobin 13.9 g/dL (14.0-18.0); Immature Granulocyte Absolute 0.15 K/mm3 (0.00-0.031); Immature Granulocyte Percent A 1.7 % (0-0.5); Immature Platelet Fraction Pct 12.2 % (0.9-11.2); Lymphocytes Absolute Auto 1.63 K/mm3 (0.9-3.2); Lymphocytes Percent Auto 18.5 % (18.3-44.2); Mean Corpuscular HGB Conc 33.7 g/dl (32-36); Mean Corpuscular Hemoglobin 29.4 pg (26-34); Mean Corpuscular Volume 87.1 fl (80-100); Mean Platelet Volume 9.5 fl (7.4-10.4); Monocytes Absolute Auto 0.8 K/mm3 (0.1-0.6); Monocytes Percent Auto 8.8 % (2.6-8.5); Neutrophils Absolute Auto 6.2 K/mm3 (1.3-6.7); Neutrophils Percent Auto 70.6 % (45.5-73.1); Platelet Count Result 57 k/mm3 (150-375); Red Blood Count 4.73 M/mm3 (4.6-6.20); Red Cell Distribution Width 11.8 % (11.5-14.5); White Blood Count 8.8 K/mm3 (4.5-10.0)
[2020-11-30 10:17] LABS: Glucose Point of Care 194 mg/dl (65-105)
[2020-11-30] MEDS: metFORMIN HCL XR 500 MG TAB.SR.24H 1000 MG PO ×2 (10:18→17:39)
[2020-11-30] MEDS: ACETAMINOPHEN 325 MG TABLET 650 MG PO ×2 (10:18→19:01)
[2020-11-30] MEDS: SIMVASTATIN 10 MG TABLET PO (10:21)
[2020-11-30] MEDS: IRBESARTAN 150 MG TABLET PO (10:21)
--- NOTE | 2020-11-30 10:23 | PM.IMPN ---
Progress Note: A&P Assessment and Plan (1) Acute respiratory failure with hypoxia: Code(s): J96.01 - Acute respiratory failure with hypoxia Status: Acute Assessment and Plan: Chest x-ray on presentation with extensive bilateral patchy pulmonary infiltrates O2 support for hypoxemia, continue to wean as tolerated Supportive measures Monitor resp status Continue home albuterol inhaler (2) COVID-19: Code(s): U07.1 - COVID-19 Status: Acute Assessment and Plan: Dexamethasone Outside the window for Remdisivir O2 support for hypoxemia, continuing to wean as tolerated Supportive measures Monitor resp status (3) Acute abdominal pain in right flank: Code(s): R10.9 - Unspecified abdominal pain Status: Acute Assessment and Plan: This is of new onset. CT scan of the abdomen 11/11 show acute findings. Abdominal pain improved. (4) Controlled diabetes mellitus type II without complication: Qualifiers: Diabetes mellitus termite exterminator helper insulin use: without [facility] use Qualified Code(s): E11.9 - Type 2 diabetes mellitus without complications Code(s): E11.9 - Type 2 diabetes mellitus without complications Status: Acute Assessment and Plan: SSI Glucose AccuChecks Hemoglobin A1c 7. His home metformin was initially held, however given clinical stability, resume. Monitor closely given dexamethasone on board, increased SSI to moderate intensity (5) Essential (primary) hypertension: Code(s): I10 - Essential (primary) hypertension Status: Acute Assessment and Plan: Continue home Irbestartan, adjust as needed (6) Mixed hyperlipidemia: Code(s): E78.2 - Mixed hyperlipidemia Status: Acute Assessment and Plan: Continue home Simvastatin (7) Thrombocytopenia: Code(s): D69.6 - Thrombocytopenia, unspecified Status: Acute Assessment and Plan: Unknown baseline. Low on presentation before enoxaparin, no heparin exposure. Possibly in setting of infection-has been reported as an isolated finding with COVID. Now seems to be up-trending. Will monitor. May need further eval if persistent. (8) Full code status: Code(s): Z78.9 - Other specified health status Status: Acute Assessment and Plan: Discussed on admission (9) DVT prophylaxis: Code(s): Z29.9 - Encounter for prophylactic measures, unspecified Status: Acute Assessment and Plan: SCDs given low platelets Subjective Date/time seen: 11/30/20 10:23 He reports feeling significantly better, his oxygen requirement now is at 3-4 L, and he has been active ambulating in his room. Feels shortness of breath is better. Hemodynamically stable. Afebrile. Review of Systems Review of Systems: All systems reviewed & are unremarkable except as noted in HPI and below Exam Narrative: Gen: Alert, NAD, oxygen by nasal cannula Abd: Soft, NT, ND Heart: RRR Lungs: CTAB Ext: No lower extremity edema Objective Data Vital Signs Vital Signs: Vital Signs - 24 hr 11/29/20 12:00 11/29/20 16:00 11/29/20 20:00 Temperature 98.1 F 99.0 F Pulse Rate 90 88 87 Respiratory Rate 20 20 Blood Pressure 120/72 121/63 Pulse Oximetry 94 97 92 11/29/20 20:47 11/29/20 20:57 11/30/20 00:00 Temperature 97.4 F L 98.3 F Pulse Rate 78 77 69 Respiratory Rate 18 18 Blood Pressure 127/72 117/69 Pulse Oximetry 92 94 93 11/30/20 04:00 11/30/20 06:15 11/30/20 07:20 Temperature 97.2 F L Pulse Rate 81 64 Respiratory Rate 20 Blood Pressure 96/70 L Pulse Oximetry 94 93 11/30/20 08:00 11/30/20 09:22 Temperature Pulse Rate 91 134 H Respiratory Rate Blood Pressure Pulse Oximetry 76 L Intake/Output Intake/Output: Intake & Output 11/27/20 11/28/20 11/29/20 11/30/20 23:59 23:59 23:59 23:59 Intake Total 2920 3590 5070 1200 Output Total 900 2900 1200 800 Balance 2020 690 3876 400 Med
[2020-11-30] MEDS: BENZONATATE 100 MG CAPSULE 200 MG PO ×3 (10:50→20:56)
[2020-11-30 11:58] LABS: Glucose Point of Care 178 mg/dl (65-105)
[2020-11-30] MEDS: ENOXAPARIN 40 MG/0.4 ML SYRINGE SUB-Q (12:26)
[2020-11-30 16:29] LABS: Glucose Point of Care 159 mg/dl (65-105)
[2020-11-30 21:05] LABS: Glucose Point of Care 162 mg/dl (65-105)
[2020-12-01] VITALS (12 sets, daily range): BP systolic 116–132; BP diastolic 61–79; PULSE 73–103; RESP 14–20; TEMP 36.6–36.8; O2SAT 92–100
[2020-12-01] MEDS: ACETAMINOPHEN 325 MG TABLET 650 MG PO ×5 (00:49→21:07)
[2020-12-01] MEDS: ALBUTEROL SULFATE (*SP) AEROSOL 1 PUFF 2 PUFF INHALATION ×4 (02:07→20:15)
[2020-12-01] MEDS: BENZONATATE 100 MG CAPSULE 200 MG PO ×3 (05:26→21:07)
[2020-12-01 07:28] LABS: Basophils Percent Auto 0.4 % (0.2-1.2); Eosinophils Absolute Auto 0.1 K/mm3 (0-0.3); Hematocrit 41.4 % (42.0-52.0); Hemoglobin 13.9 g/dL (14.0-18.0); Immature Granulocyte Absolute 0.21 K/mm3 (0.00-0.031); Immature Granulocyte Percent A 2.6 % (0-0.5); Immature Platelet Fraction Pct 13.3 % (0.9-11.2); Lymphocytes Absolute Auto 1.21 K/mm3 (0.9-3.2); Lymphocytes Percent Auto 15.1 % (18.3-44.2); Mean Corpuscular HGB Conc 33.6 g/dl (32-36); Mean Corpuscular Volume 89.2 fl (80-100); Monocytes Absolute Auto 0.8 K/mm3 (0.1-0.6); Monocytes Percent Auto 9.8 % (2.6-8.5); Neutrophils Absolute Auto 5.7 K/mm3 (1.3-6.7); Neutrophils Percent Auto 71.1 % (45.5-73.1); Platelet Count Result 85 k/mm3 (150-375); Red Blood Count 4.64 M/mm3 (4.6-6.20)
[2020-12-01 08:16] LABS: Atypical Lymphocytes Present; Platelet Estimate Decreased (Adequate)
[2020-12-01] MEDS: metFORMIN HCL XR 500 MG TAB.SR.24H 1000 MG PO ×2 (08:28→16:53)
[2020-12-01] MEDS: IRBESARTAN 150 MG TABLET PO (08:29)
[2020-12-01] MEDS: SIMVASTATIN 10 MG TABLET PO (08:29)
[2020-12-01] MEDS: guaiFENesin 12 HR 600 MG TABCR PO ×2 (08:29→20:02)
[2020-12-01 09:37] LABS: Glucose Point of Care 158 mg/dl (65-105)
[2020-12-01 11:52] LABS: Glucose Point of Care 179 mg/dl (65-105)
[2020-12-01 17:24] LABS: Glucose Point of Care 192 mg/dl (65-105)
--- NOTE | 2020-12-01 19:25 | PM.IMPN ---
Progress Note: A&P Assessment and Plan (1) Acute respiratory failure with hypoxia: Code(s): J96.01 - Acute respiratory failure with hypoxia Status: Acute Assessment and Plan: Chest x-ray on presentation with extensive bilateral patchy pulmonary infiltrates O2 support for hypoxemia, continue to wean as tolerated. Currently requiring 6 liters nasal canula Supportive measures Monitor respiratory status Continue home albuterol inhaler (2) COVID-19: Code(s): U07.1 - COVID-19 Status: Acute Assessment and Plan: Continue dexamethasone 6 mg IV daily Outside the window for Remdisivir O2 support for hypoxemia, continuing to wean as tolerated Supportive measures Monitor respiratory status (3) Acute abdominal pain in right flank: Code(s): R10.9 - Unspecified abdominal pain Status: Acute Assessment and Plan: Pain is improving. Abdomen CT reveals colonic diverticulosis. (4) Controlled diabetes mellitus type II without complication: Qualifiers: Diabetes mellitus intermission coordinator insulin use: without intermission coordinator use Qualified Code(s): E11.9 - Type 2 diabetes mellitus without complications Code(s): E11.9 - Type 2 diabetes mellitus without complications Status: Acute Assessment and Plan: Continue home metformin and SSI moderate intensity. Monitor accuchecks closely in the setting of steroid treatment. (5) Thrombocytopenia: Code(s): D69.6 - Thrombocytopenia, unspecified Status: Acute Assessment and Plan: Monitor platelet count. Unknown baseline. (6) DVT prophylaxis: Code(s): Z29.9 - Encounter for prophylactic measures, unspecified Status: Acute (7) Full code status: Code(s): Z78.9 - Other specified health status Status: Acute (8) Essential (primary) hypertension: Code(s): I10 - Essential (primary) hypertension Status: Acute Assessment and Plan: Continue irbesartan. Subjective Date/time seen: 12/01/20 19:25 Review of Systems Review of Systems: All systems reviewed & are unremarkable except as noted in HPI and below Exam Narrative: Gen: Alert, NAD, oxygen by nasal cannula Abd: Soft, NT, ND Heart: RRR Lungs: CTAB Ext: No lower extremity edema Objective Data Vital Signs Vital Signs: Vital Signs - 24 hr 11/30/20 20:00 11/30/20 20:25 12/01/20 00:00 Temperature 98.4 F 98.1 F Pulse Rate 86 86 87 Respiratory Rate 20 20 20 Blood Pressure 123/72 122/69 Pulse Oximetry 92 93 94 12/01/20 02:10 12/01/20 04:00 12/01/20 08:00 Temperature 98.1 F 98.2 F Pulse Rate 87 103 H Respiratory Rate 20 16 Blood Pressure 132/69 124/66 Pulse Oximetry 97 94 95 12/01/20 08:36 12/01/20 09:58 12/01/20 12:00 Temperature 98.0 F Pulse Rate 90 Respiratory Rate 14 Blood Pressure 116/61 Pulse Oximetry 94 92 96 12/01/20 16:00 12/01/20 18:00 12/01/20 18:12 Temperature 97.9 F Pulse Rate 87 Respiratory Rate 16 Blood Pressure 127/77 Pulse Oximetry 100 100 95 Intake/Output Intake/Output: Intake & Output 11/28/20 11/29/20 11/30/20 12/01/20 23:59 23:59 23:59 23:59 Intake Total 3590 5070 3720 2670 Output Total 2900 1200 1800 1100 Balance 690 3870 1920 1570 Meds/Results Medications: Active Medications Generic Name Dose Route Start Last Admin Trade Name Freq PRN Reason Stop Dose Admin Acetaminophen 650 mg 11/27/20 08:52 12/01/20 16:53 Acetaminophen 325 Mg Tablet PO 650 mg Q4H PRN Administration Mild Pain (1-3) or Fever Albuterol 2 puff 11/27/20 08:00 12/01/20 13:49 Albuterol Sulfate (*Sp) Aerosol 1 Puff INHALATION 2 puff Q6HRT AMY Administration Albuterol 2 puff 11/27/20 08:56 Albuterol Sulfate (*Sp) Aerosol 1 Puff INHALATION Q4H PRN shortness of breath or wheezing Benzonatate 200 mg 11/30/20 07:56 12/01/20 13:48 Benzonatate 100 Mg Capsule PO 200 mg Q8HR AMY Administration Dexamethasone Sodi
[2020-12-01 21:15] LABS: Glucose Point of Care 193 mg/dl (65-105)
[2020-12-01] MEDS: ZOLPIDEM TARTRATE (*CRX) 5 MG TABLET 10 MG PO (22:23)
[2020-12-02] VITALS (7 sets, daily range): BP systolic 116–135; BP diastolic 59–79; PULSE 54–88; RESP 12–18; TEMP 36.1–37.2; O2SAT 94–99
[2020-12-02] MEDS: ALBUTEROL SULFATE (*SP) AEROSOL 1 PUFF 2 PUFF INHALATION ×4 (01:33→19:30)
[2020-12-02] MEDS: BENZONATATE 100 MG CAPSULE 200 MG PO ×3 (05:38→20:17)
[2020-12-02 06:45] LABS: Basophils Percent Auto 0.3 % (0.2-1.2); Eosinophils Absolute Auto 0.1 K/mm3 (0-0.3); Eosinophils Percent Auto 0.7 % (0-4.4); Hemoglobin 14.3 g/dL (14.0-18.0); Immature Platelet Fraction Pct 11.9 % (0.9-11.2); Lymphocytes Absolute Auto 1.79 K/mm3 (0.9-3.2); Mean Corpuscular HGB Conc 33.3 g/dl (32-36); Mean Corpuscular Hemoglobin 29.9 pg (26-34); Mean Corpuscular Volume 89.8 fl (80-100); Mean Platelet Volume 11.8 fl (7.4-10.4); Monocytes Absolute Auto 0.8 K/mm3 (0.1-0.6); Monocytes Percent Auto 7.9 % (2.6-8.5); Neutrophils Absolute Auto 7.1 K/mm3 (1.3-6.7); Neutrophils Percent Auto 71.1 % (45.5-73.1); Red Blood Count 4.79 M/mm3 (4.6-6.20); Red Cell Distribution Width 11.9 % (11.5-14.5); White Blood Count 9.9 K/mm3 (4.5-10.0)
[2020-12-02] MEDS: ACETAMINOPHEN 325 MG TABLET 650 MG PO ×3 (07:46→22:31)
[2020-12-02] MEDS: SIMVASTATIN 10 MG TABLET PO (07:46)
[2020-12-02] MEDS: guaiFENesin 12 HR 600 MG TABCR PO ×2 (07:46→20:17)
[2020-12-02] MEDS: metFORMIN HCL XR 500 MG TAB.SR.24H 1000 MG PO ×2 (07:46→17:59)
[2020-12-02] MEDS: IRBESARTAN 150 MG TABLET PO (07:46)
[2020-12-02 08:40] LABS: Glucose Point of Care 151 mg/dl (65-105)
[2020-12-02 09:47] LABS: Platelet Count Result 276 k/mm3 (150-375)
[2020-12-02] MEDS: INSULIN ASPART (*BKC) 100 UNITS/ML SUB-Q ×2 (12:05→17:59)
[2020-12-02 12:07] LABS: Glucose Point of Care 218 mg/dl (65-105)
--- NOTE | 2020-12-02 12:30 | PM.IMPN ---
Progress Note: A&P Assessment and Plan (1) Acute respiratory failure with hypoxia: Code(s): J96.01 - Acute respiratory failure with hypoxia Status: Acute Assessment and Plan: Chest x-ray on presentation with extensive bilateral patchy pulmonary infiltrates O2 support for hypoxemia, continue to wean as tolerated. Currently requiring 6 liters nasal canula Supportive measures Monitor respiratory status Continue home albuterol inhaler No clear clinical improvement. Patient is stable on 6 liters of oxygen. (2) COVID-19: Code(s): U07.1 - COVID-19 Status: Acute Assessment and Plan: Continue dexamethasone 6 mg IV daily Outside the window for Remdisivir O2 support for hypoxemia, continuing to wean as tolerated Supportive measures Monitor respiratory status (3) Acute abdominal pain in right flank: Code(s): R10.9 - Unspecified abdominal pain Status: Acute Assessment and Plan: Pain is improving. Abdomen CT reveals colonic diverticulosis. (4) Controlled diabetes mellitus type II without complication: Qualifiers: Diabetes mellitus tank terminal gauger insulin use: without shelter use Qualified Code(s): E11.9 - Type 2 diabetes mellitus without complications Code(s): E11.9 - Type 2 diabetes mellitus without complications Status: Acute Assessment and Plan: Continue home metformin and SSI moderate intensity. Monitor accuchecks closely in the setting of steroid treatment. (5) Thrombocytopenia: Code(s): D69.6 - Thrombocytopenia, unspecified Status: Acute Assessment and Plan: Monitor platelet count. Unknown baseline. (6) DVT prophylaxis: Code(s): Z29.9 - Encounter for prophylactic measures, unspecified Status: Acute (7) Full code status: Code(s): Z78.9 - Other specified health status Status: Acute (8) Essential (primary) hypertension: Code(s): I10 - Essential (primary) hypertension Status: Acute Assessment and Plan: Continue irbesartan. Time Spent With Patient Time with patient: less than 15 minutes Subjective Date/time seen: 12/02/20 12:30 Patient was seen walking in his room; no complaints. Review of Systems Review of Systems: All systems reviewed & are unremarkable except as noted in HPI and below Exam Narrative: Gen: Alert, NAD, oxygen by nasal cannula 6 liters. Abd: Soft, NT, ND Heart: RRR Lungs: CTAB Ext: No lower extremity edema Objective Data Vital Signs Vital Signs: Vital Signs - 24 hr 12/01/20 16:00 12/01/20 18:00 12/01/20 18:12 Temperature 97.9 F Pulse Rate 87 Respiratory Rate 16 Blood Pressure 127/77 Pulse Oximetry 100 100 95 12/01/20 20:00 12/01/20 20:44 12/02/20 00:00 Temperature 97.9 F 97.4 F L Pulse Rate 73 54 L Respiratory Rate 18 18 Blood Pressure 132/79 126/76 Pulse Oximetry 94 93 94 12/02/20 04:00 12/02/20 08:00 12/02/20 12:00 Temperature 97.5 F L 98.3 F 98.9 F Pulse Rate 80 88 81 Respiratory Rate 18 12 14 Blood Pressure 121/76 116/79 118/59 L Pulse Oximetry 94 97 97 Intake/Output Intake/Output: Intake & Output 11/29/20 11/30/20 12/01/20 12/02/20 23:59 23:59 23:59 23:59 Intake Total 5070 3720 2720 1280 Output Total 1200 1800 1100 600 Balance 3870 1920 1620 680 Meds/Results Medications: Active Medications Generic Name Dose Route Start Last Admin Trade Name Freq PRN Reason Stop Dose Admin Acetaminophen 650 mg 11/27/20 08:52 12/02/20 07:46 Acetaminophen 325 Mg Tablet PO 650 mg Q4H PRN Administration Mild Pain (1-3) or Fever Albuterol 2 puff 11/27/20 08:00 12/02/20 08:56 Albuterol Sulfate (*Sp) Aerosol 1 Puff INHALATION 2 puff Q6HRT AMY Administration Albuterol 2 puff 11/27/20 08:56 Albuterol Sulfate (*Sp) Aerosol 1 Puff INHALATION Q4H PRN shortness of breath or wheezing Benzonatate 200 mg 11/30/20 07:56 12/02/20 05:38 Benzonatate 100 Mg Capsule PO 20
--- NOTE | 2020-12-02 13:19 | PCDIET ---
Weekly nutritional screen. Patient is tolerating current diet, consistent carb which is appropriate, with adequate intake, 100%. No weight loss reported. Bowels moving normally. No nutritional needs at this time.
[2020-12-02] MEDS: guaiFENesin/DEXTROMETHORPHAN 10 ML UDC PO ×2 (15:02→20:17)
[2020-12-02 17:07] LABS: Glucose Point of Care 229 mg/dl (65-105)
[2020-12-02 21:00] LABS: Glucose Point of Care 300 mg/dl (65-105)
[2020-12-02 21:00] LABS: Glucose Point of Care > 500 mg/dl (65-105)
[2020-12-02] MEDS: ZOLPIDEM TARTRATE (*CRX) 5 MG TABLET 10 MG PO (22:31)
[2020-12-03] VITALS (10 sets, daily range): BP systolic 104–123; BP diastolic 65–72; PULSE 74–107; RESP 16–18; TEMP 36.1–37.1; O2SAT 92–99
[2020-12-03] MEDS: ALBUTEROL SULFATE (*SP) AEROSOL 1 PUFF 2 PUFF INHALATION ×2 (02:49→08:57)
[2020-12-03 08:10] LABS: Glucose Point of Care 162 mg/dl (65-105)
--- NOTE | 2020-12-03 09:28 | PM.IMPN ---
Progress Note: A&P Assessment and Plan (1) Acute respiratory failure with hypoxia: Code(s): J96.01 - Acute respiratory failure with hypoxia Status: Acute Assessment and Plan: Chest x-ray on presentation with extensive bilateral patchy pulmonary infiltrates O2 support for hypoxemia, continue to wean as tolerated. Currently requiring 5 liters nasal canula Supportive measures Monitor respiratory status Continue home albuterol inhaler [place] clinical improvement. Patient is stable on 5 liters of oxygen. Home O 2 assessment by respiratory in anticipation for discharge on 12/05/2020 if continuous clinical improvement. (2) COVID-19: Code(s): U07.1 - COVID-19 Status: Acute Assessment and Plan: Continue dexamethasone 6 mg IV daily Outside the window for Remdisivir O2 support for hypoxemia, continuing to wean as tolerated Supportive measures Monitor respiratory status Home O2 requirement evaluation (3) Acute abdominal pain in right flank: Code(s): R10.9 - Unspecified abdominal pain Status: Acute Assessment and Plan: Pain has resolved. Abdomen CT reveals colonic diverticulosis. (4) Controlled diabetes mellitus type II without complication: Qualifiers: Diabetes mellitus detention insulin use: without detention use Qualified Code(s): E11.9 - Type 2 diabetes mellitus without complications Code(s): E11.9 - Type 2 diabetes mellitus without complications Status: Acute Assessment and Plan: Continue home metformin and SSI moderate intensity. Monitor accuchecks closely in the setting of steroid treatment. (5) Thrombocytopenia: Code(s): D69.6 - Thrombocytopenia, unspecified Status: Acute Assessment and Plan: Monitor platelet count. Unknown baseline. (6) DVT prophylaxis: Code(s): Z29.9 - Encounter for prophylactic measures, unspecified Status: Acute (7) Full code status: Code(s): Z78.9 - Other specified health status Status: Acute (8) Essential (primary) hypertension: Code(s): I10 - Essential (primary) hypertension Status: Acute Assessment and Plan: Continue irbesartan. Additional Plan 1) Acute respiratory failure with hypoxia: Code(s): J96.01 - Acute respiratory failure with hypoxia Status: Acute Assessment and Plan: Chest x-ray on presentation with extensive bilateral patchy pulmonary infiltrates O2 support for hypoxemia, continue to wean as tolerated Supportive measures Monitor resp status Continue home albuterol inhaler (2) COVID-19: Code(s): U07.1 - COVID-19 Status: Acute Assessment and Plan: Dexamethasone Outside the window for Remdisivir O2 support for hypoxemia, continuing to wean as tolerated Supportive measures Monitor resp status (3) Acute abdominal pain in right flank: Code(s): R10.9 - Unspecified abdominal pain Status: Acute Assessment and Plan: This is of new onset. CT scan of the abdomen 11/11 show acute findings. Abdominal pain improved. (4) Controlled diabetes mellitus type II without complication: Qualifiers: Diabetes mellitus detention insulin use: without computer terminal operator use Qualified Code(s): E11.9 - Type 2 diabetes mellitus without complications Code(s): E11.9 - Type 2 diabetes mellitus without complications Status: Acute Assessment and Plan: SSI Glucose AccuChecks Hemoglobin A1c 7. His home metformin was initially held, however given clinical stability, resume. Monitor closely given dexamethasone on board, increased SSI to moderate intensity (5) Essential (primary) hypertension: Code(s): I10 - Essential (primary) hypertension Status: Acute Assessment and Plan: Continue home Irbestartan, adjust as needed (6) Mixed hyperlipidemia: Code(s): E78.2 - Mixed hyperlipidemia Status: Acute Assessment and Plan: Continue home Simvastatin (7) T
[2020-12-03] MEDS: guaiFENesin 12 HR 600 MG TABCR PO (10:22)
[2020-12-03] MEDS: IRBESARTAN 150 MG TABLET PO (10:22)
[2020-12-03] MEDS: BENZONATATE 100 MG CAPSULE 200 MG PO (10:22)
[2020-12-03] MEDS: SIMVASTATIN 10 MG TABLET PO (10:22)
[2020-12-03] MEDS: metFORMIN HCL XR 500 MG TAB.SR.24H 1000 MG PO (10:22)
[2020-12-03 11:38] LABS: Glucose Point of Care 233 mg/dl (65-105)
--- NOTE | 2020-12-03 11:39 | PCRCNOTE ---
HOME OXYGEN EVALUATION COMPLETE; PT. DOES NOT REQUIRE HOME OXYGEN. R.N. NOTIFIED OF THE RESULTS.
--- NOTE | 2020-12-03 11:54 | PM.DS ---
DS: Admitting Diagnosis Admitting Diagnosis Shortness of breath DS: Discharge Diagnosis Discharge Diagnosis (1) Acute respiratory failure with hypoxia: Code(s): J96.01 - Acute respiratory failure with hypoxia Status: Acute Assessment and Plan: Chest x-ray on presentation with extensive bilateral patchy pulmonary infiltrates O2 support for hypoxemia, continue to wean as tolerated. Currently requiring 5 liters nasal canula Supportive measures Monitor respiratory status Continue home albuterol inhaler Mod[place] clinical improvement. Patient is stable on 5 liters of oxygen. Home O 2 assessment by respiratory in anticipation for discharge on 12/05/2020 if continuous clinical improvement. (2) COVID-19: Code(s): U07.1 - COVID-19 Status: Acute Assessment and Plan: Continue dexamethasone 6 mg IV daily Outside the window for Remdisivir O2 support for hypoxemia, continuing to wean as tolerated Supportive measures Monitor respiratory status Home O2 requirement evaluation (3) Acute abdominal pain in right flank: Code(s): R10.9 - Unspecified abdominal pain Status: Acute Assessment and Plan: Pain has resolved. Abdomen CT reveals colonic diverticulosis. (4) Controlled diabetes mellitus type II without complication: Qualifiers: Diabetes mellitus group home insulin use: without group home use Qualified Code(s): E11.9 - Type 2 diabetes mellitus without complications Code(s): E11.9 - Type 2 diabetes mellitus without complications Status: Acute Assessment and Plan: Continue home metformin and SSI moderate intensity. Monitor accuchecks closely in the setting of steroid treatment. (5) Thrombocytopenia: Code(s): D69.6 - Thrombocytopenia, unspecified Status: Acute Assessment and Plan: Monitor platelet count. Unknown baseline. (6) DVT prophylaxis: Code(s): Z29.9 - Encounter for prophylactic measures, unspecified Status: Acute (7) Full code status: Code(s): Z78.9 - Other specified health status Status: Acute (8) Essential (primary) hypertension: Code(s): I10 - Essential (primary) hypertension Status: Acute Assessment and Plan: Continue irbesartan. DS: Summary Hospital Course Reason for hospitalization: Shortness of breath Hospital Course: This is 52-year-old gentleman with past medical history of type 2 diabetes mellitus, hypertension, hyperlipidemia, nonalcoholic steatohepatitis, who presented to the emergency department on 11/27/2020 with weakness and shortness of breath that have progressed over the previous 4 days. He was previously diagnosed with COVID-19 on 11/15. He reportedly was on her with azithromycin as well as ivermectin at some point but continued to experience shortness of breath. He endorsed some right upper quadrant abdominal pain ; abdominal CT scan reveals only diverticulosis. There was no nausea, vomiting, chest pain; he reported intermittent cough. On presentation to the emergency department he had saturation of oxygen 87-88%. He was placed on oxygen by nasal cannula at 7 liters with improvement and has pulse oximetry to the 90s. His initial blood work showed hemoglobin 15.2, WBC 6.4, INR 0.9, sodium 137, potassium 3.7, chloride 95, bicarb 25, anion gap 7, BUN 8, creatinine 0.7, calcium 8.4 AST 109, ALT 101, total bilirubin 0.7, alk-phos 51, albumin 3.8. His initial blood pressure was 135/74 with a heart rate of 94. He was afebrile. He was treated with daily injections of dexamethasonefor 6 days; he was not eligible for remdesivir. Chest x-ray on presentation with extensive bilateral patchy pulmonary infiltrates. Repeat chest Xray on 12/01 reveals diffuse lung disease with interval worsening, likely worsening COVID 19 pneumonia. The patient O2 requirement today was 4 liters. Home O2 assessment: he does not require oxygeb support. Patient will be discharged home to self care . Time Spent wi
[2020-12-03] MEDS: INSULIN ASPART (*BKC) 100 UNITS/ML SUB-Q (12:20)
== END 2020-12-03 13:15 | disposition home or self-care (01) | DRG 177 ==
LOC: ANHED 11-27 03:05 → ANH3MEDSUR 11-27 03:35
PROVIDERS: Internal Medicine Nephrology; Admitting Provider Internal Medicine; Emergency Provider Emergency Medicine; PCP Family Medicine; Visit Provider Internal Medicine
DX: U07.1 COVID-19 (principal); J96.01 Acute respiratory failure with hypoxia; R10.9 Unspecified abdominal pain; E11.9 Type 2 diabetes mellitus without complications; I10 Essential (primary) hypertension; E78.2 Mixed hyperlipidemia; K75.81 Nonalcoholic steatohepatitis (NASH); D69.6 Thrombocytopenia, unspecified; Z78.9 Other specified health status; Z87.891 Personal history of nicotine dependence
CPT/HCPCS: 36415; 71045; 71275; 74177; 80048; 80053; 80076; 82248; 82948; 83036; 83605; 83615; 84145; 85025; 85055; 85380; 85610; 85730; 86140; 87040; 93005; 94618; 94640; 96374; 97162; 97165; 99291; A9270; G0378; J0131; J0456; J0696; J1100; J1650; J1815; J7030; Q9967

== ENCOUNTER → 2021-06-05 15:31 | Outpatient (CLI) | payer OTHER, SELFPAY ==
--- NOTE | ~2021-06-05 | XR_ITS ---
EXAMINATION: XR chest 2V EXAM DATE: 06/05/2021 15:44 INDICATION: R07.89 - Other chest pain/right side X 2 weeks. TECHNIQUE: Frontal and lateral projections of the chest obtained and reviewed. Comparison is made to prior examination from 12/01/2020. FINDINGS: Resolution of previously seen pneumonia. The lungs are clear. There are no pleural effusi ons. The cardiomediastinal silhouette is within normal limits. There is no pneumothorax suspected. The bones and soft tissues are unremarkable. IMPRESSION: No acute cardiopulmonary findings. Reviewed, dictated and finalized at location A. CE SUPPORT ASSISTANT
== END ==
PROVIDERS: PCP Family Medicine; Visit Provider Family Medicine
DX: R07.89 Other chest pain (principal)
CPT/HCPCS: 71046

== ENCOUNTER → 2021-06-12 08:02 | Outpatient (CLI) | payer OTHER, SELFPAY ==
--- NOTE | ~2021-06-12 | CT_ITS ---
EXAMINATION: CT BRAIN W/O DATE: 06/12/2021 08:19 INDICATION: Disorientation and confusion TECHNIQUE: Computed tomography (CT) of the head was performed without intravenous contrast. The dose- length product was 599.57 mGy-cm. Automated exposure control and iterative reconstruction technique w ere employed. COMPARISON: No prior studies for comparison. FINDINGS: Normal brain parenchymal volume for age. Normal caceres-white differentiation. No acute intrac ranial hemorrhage, infarction, mass or mass effect. No ventriculomegaly or midline shift. Midline sagittal images demonstrate a normal corpus callosum, c raniovertebral junction and sella turcica. Basilar cisterns are patent. Paranasal sinuses and mastoids are pneumatized. No depressed skull fractures. There is a cluster of l ytic lesions in the left frontal bone. IMPRESSION: 1. No acute intracranial abnormality. 2: Clustered lytic lesions left frontal bone which may be benign such as hemangioma, although metasta tic disease and myeloma should be considered. Correlate for clinical history of malignancy. Consider correlation with bone scan. Reviewed, dictated and finalized at location B. IMPRESSION: 1. No acute intracranial abnormality. 2: Clustered lytic lesions left frontal bone which may be benign such as norris ioma, although metastatic disease and myeloma should be considered. Correlate f or clinical history of malignancy. Consider correlation with bone scan.
== END ==
PROVIDERS: PCP Family Medicine; Visit Provider Family Medicine
DX: R41.0 Disorientation, unspecified (principal)
CPT/HCPCS: 70450

== ENCOUNTER 2021-06-21 08:22 | Outpatient (CLI) | payer OTHER, SELFPAY ==
--- NOTE | ~2021-06-21 | NM_ITS ---
EXAMINATION: NM bone scan whole body DATE: 06/21/2021 12:58 INDICATION: Disorder of bone TECHNIQUE: 22.281 mCi Tc-99m HDP was administered intravenously. Delayed whole-body scintigrams were obtained. COMPARISON: Head CT dated 06/12/2022, CT abdomen and pelvis dated 11/28/[address] chest dated 11/28/19 21 FINDINGS: Mild increased uptake in the left frontal bone corresponding to the lytic lesion seen on prior CT whi ch demonstrates and honeycomb appearance with multiple thin internal septations as well as a feeding vessels suggesting a hemangioma which can demonstrate low level uptake on bone scan. Typical pattern of likely degenerative joint centered uptake at the bilateral acromioclavicular joints, bilateral hip s, right greater than left, and at numerous additional joints in the more distal extremities. Multipl e small foci of increased uptake along the peripheral margins of the sternum which appear to correspo nd to prominent costochondral calcifications. No other suspicious foci of abnormal bone uptake to sug gest metastatic disease. IMPRESSION: 1. Mild uptake associated with an indolent appearing lytic lesion in the left frontal bone with appea hari favoring a hemangioma. No more widespread suspicious foci of bone uptake to suggest metastatic disease. Reviewed, dictated and finalized at location A. IMPRESSION: 1. Mild uptake associated with an indolent appearing lytic lesion in the left f rontal bone with appearance favoring a hemangioma. No more widespread suspiciou s foci of bone uptake to suggest metastatic disease.
== END 2021-06-21 08:23 | disposition home or self-care (01) ==
LOC: ANHIMG 08:24
PROVIDERS: PCP Family Medicine; Visit Provider Family Medicine
DX: M89.9 Disorder of bone, unspecified (principal)
CPT/HCPCS: 78306; A9561

== ENCOUNTER 2021-06-22 09:33 | Outpatient (CLI) | payer OTHER, SELFPAY ==
--- NOTE | 2021-06-22 | EST_ITS ---
Patient Info Name: Ervin Fuentes Age: 61 years : 1960 Gender: Male Ht: 70 in Wt: 250 lbs BSA: 2.41 m2 HR: 87 bpm BP: 120 / 86 mmHg Heart Rhythm: Sinus Rhythm Exam Date: 06/22/2021 10:29 AM Exam Location: [facility] Stress Patient Status: Outpatient Admit Date: 06/22/2021 Staff Ordering Physician: KYA ARNOLD M.D. Attending Provider: Kya Arnold MD Exercise Technologist: Romi Dave CT Exercise Physician: Yemi Morales DO Exam Type: CA stress test treadmill Study Info Indications R07.89 - Other chest pain A treadmill exercise stress test was performed. Summary 1. 1. Negative Leandro exercise stress test for ischemic ST changes by ECG criteria. 2. 2. Reduced functional capacity, achieving 7 METs of workload. 3. 3. Appropriate HR response to exercise. 4. 4. Appropriate HR recovery at 1 minute post exercise. 5. 5. No imaging with stress testing. 6. 6. Patient informed of the above results. Protocol: Leandro Rest HR: 94 bpm Peak HR: 161 bpm Rest Sys BP: 120 mmHg Peak Sys BP: 190 mmHg Max Pred HR: 161 bpm % Max Pred HR: 100 % Target HR: 137 bpm Max RPP: 30,590 bpm*mmHg Target HR Summary: Test terminated after reaching maximum heart rate Termination Reason: Reached target heart rate or workload Cardiac Symptoms: Shortness of breath Total Time: 5 min : 30 sec Rest Franco BP: 86 mmHg Peak Franco BP: 67 mmHg Resting ECG Sinus rhythm, IRBBB. Stress ECG No ST changes. Arrhythmias None. Report Signatures
--- NOTE | 2021-06-22 09:55 | ECG_ITS ---
Measurements Intervals [place] Rate: 86 P: 48 WV: 185 QRS: 33 QRSD: 88 T: 20 QT: 350 QTc: 420 Interpretive Statements SINUS RHYTHM POSSIBLE RIGHT VENTRICULAR CONDUCTION DELAY [RSR (QR) IN V1/V2] BORDERLINE ECG COMPARED TO ECG 11/26/2020 23:30:34 NO SIGNIFICANT CHANGES Electronically Signed On 06-22-2021 15:59:31 CDT by Royce Munoz M.D.
== END 2021-06-22 09:34 | disposition home or self-care (01) ==
LOC: ANHCARD 09:38
PROVIDERS: PCP Family Medicine; Visit Provider Family Medicine
DX: R07.89 Other chest pain (principal); R94.31 Abnormal electrocardiogram [ECG] [EKG]
CPT/HCPCS: 93005; 93017

== ENCOUNTER 2021-07-17 07:39 | Outpatient (CLI) | payer OTHER, SELFPAY ==
--- NOTE | 2021-07-19 15:32 | WPDHOMESLEEP ---
Sleep Study - Home Unattended Date of Study: 07/17/21 Ordering Provider: Kevin Arnold MD Interpreting Provider: Kiara Tello, DO Home Sleep Study Type: Apnea Link Air Height: 1.78 m Weight: 113.398 kg Body Mass Index: 35.9 Neck Circumference (inches): 19.75 [place]: 4 Reason for Sleep Study Unrefreshing sleep. Sleep History The patient is a 61-year-old male with hypertension, hypogonadism, hyperlipidemia, GALARZA, seasonal allergies and history of tobacco abuse that had a sleep study ordered by his primary care physician due to hypersomnia. The patient denies awakening from sleep short of breath. He occasionally awakens at night with heartburn, belching or cough. He frequently snores and it is occasionally loud enough that others complain. He occasionally has trouble sleeping when he has a cold. He denies waking up gasping for air throughout the night. He rarely has breathing problems at night observed by himself or others. He rarely sweats excessively at night. He denies heart palpitations or irregular heartbeats during the night. He frequently falls asleep during the day but never while driving. He denies sleep paralysis, cataplexy and hypnagogic / hypnopompic hallucinations. He denies having trouble at school or work due to sleepiness. He denies having nightmares. He occasionally remembers his dreams. He frequently has thoughts racing through his mind. He occasionally feels sad or depressed. He denies having anxiety. He frequently has muscular tension. He denies noticing parts of his body jerk. He denies kicking during the night. He occasionally has crawling and aching feelings in his legs as well as leg pain during the night. He denies grinding his teeth during sleep awakening with morning jaw pain. He frequently bothered by pain during the day and occasionally awakened by pain during the night. He frequently wakes up feeling stiff in the morning. He rarely wakes up with sore achy muscles. He occasionally wakes up with pain in the neck, spine and other joints. He goes to bed between 9 and 10:00 p.m. on both weekdays and weekends. He can take him 30 minutes to 4 hours to fall asleep. He wakes up twice throughout the night to use the restroom. He is able to fall back asleep within 10-15 minutes. He wakes up between 6 and 7:00 a.m. on both weekdays and weekends. He typically gets between 6 and 8 hours of sleep per night. He will stay in bed for 5-10 minutes after waking up in the morning. He currently lives with his and daughter. He does not consume any caffeinated beverages within 2 hours of bedtime. He does not engage in physical exercise before bedtime. He will watch television before falling asleep. He does not take naps in the afternoon or the evening. He quit smoking 10 years ago. He will drink 2 cups of coffee and 2 cups of tea per day. He denies alcohol use he did state that he uses recreational drugs. [facility] Past Medical History Medical History Acute abdominal pain in right flank Acute bronchitis Acute non-recurrent maxillary sinusitis Acute respiratory failure with hypoxia Atypical chest pain Bimalleolar ankle fracture Bleeding from the nose Chronic left shoulder pain Chronic thoracic back pain Colon cancer screening Confusion CT of the brain unremarkable on 06/12/2021 except for lytic lesions in the left frontal bone Controlled diabetes mellitus type II without complication COVID-19 (11/15/20) rapid test positive on 11/18/2020. treated with azithromycin, ivermectin, monoclonal antibodies, and admitted to hospital 11/26 through 12/03/2020 DVT prophylaxis Dyspnea on exertion chest x-ray 06/05/2021 was normal. COVID pneumonia resolved. Elevated liver enzymes Encounter for prostate cancer screening Epigastric abdominal tenderness Essential (primary) hypertension Full code status Hypersomnia Hypogonadism male (05/29/21) total test
[2021-07-19 15:47] VITALS: BMI 35.9
== END 2021-07-18 12:19 | disposition home or self-care (01) ==
LOC: ANHCSM 07:39
PROVIDERS: PCP Family Medicine; Visit Provider Family Medicine
DX: G47.33 Obstructive sleep apnea (adult) (pediatric) (principal)
CPT/HCPCS: 95806

== ENCOUNTER 2022-11-09 14:35 | Outpatient (CLI) | payer OTHER, SELFPAY ==
--- NOTE | 2022-11-12 17:15 | WPDPFTINT ---
PFT Procedure Performed PFT Procedure Performed Spirometry with Pre/Post Bronchodilator Plethysmography (Lung Vol) Diffusing Cap (DLCO) Flow Vol Loop PFT Interpretation This is a pulmonary function test with pre and post-bronchodilator spirometry, plethysmography and diffusing capacity. The test was performed and results interpreted in accordance with the 2019 and 2005 ATS/ERS Task Force guidelines respectively using the Global Lung Function Initiative-2012 reference equations. Patient demonstrated good effort and cooperation. Reproducibility criteria were met. The quality of the pre bronchodilator spirometry maneuver was Grade A and post bronchodilator spirometry maneuver was Grade A. Findings: Spirometry: The contour the inspiratory and expiratory flow tracing are normal. The pre bronchodilator FVC is 4.88 L, 105% predicted. The pre bronchodilator FEV1 is 3.8 L, 108% predicted. The pre bronchodilator FEV1: FVC ratio was 80%. The post bronchodilator FVC is 4.88 L, representing no change. The post bronchodilator FEV1 is 4.04 L, representing a 4% increase. The post bronchodilator FEV1: FVC ratio was 83%. Plethysmography: The total lung capacity is 7.43 L, 106% predicted. The functional residual capacity is 3.94 L, 108% predicted. The residual volume is 1.47 L, 94% predicted. Diffusing capacity: The diffusing capacity unadjusted for hemoglobin and carboxyhemoglobin is 29.9, 105% predicted. The diffusing capacity adjusted for alveolar volume is 5.22, 123% predicted. Impression: The spirometry is normal without evidence of an obstructive abnormality. There is no significant improvement after inhaling a single dose of albuterol. The lung volumes are normal. The diffusing capacity is normal. There are no prior studies for comparison
== END 2022-11-09 14:36 | disposition home or self-care (01) ==
PROVIDERS: PCP Family Medicine; Visit Provider Family Medicine
DX: R06.00 Dyspnea, unspecified (principal)
CPT/HCPCS: 94060; 94726; 94729

== ENCOUNTER 2023-04-26 12:18 | Emergency (ER) | payer OTHER, SELFPAY ==
[2023-04-26 12:27] VITALS: BP 120/86; PULSE 80; RESP 16; TEMP 36.6; O2SAT 99
--- NOTE | 2023-04-26 12:52 | ED.URI ---
HPI - URI/Sore Throat General Chief Complaint: Upper Respiratory Infection Stated Complaint: Cold symptoms Time Seen by Provider: 04/26/23 12:37 Source: patient, RN notes reviewed and old records reviewed Mode of arrival: ambulatory Limitations: no limitations History of Present Illness HPI Narrative: Patient presents today complaining of 9 day history headache, congestion, subjective fever, cough, hoarseness, and intermittent dizziness. Denies shortness of breath or chest pain. He has been taking Tylenol with mild relief. For the last week, he has also been taking cefdinir prescribed by his PCP. No relief once starting the antibiotic. 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 Related Data Home Medications Medication Instructions Recorded Confirmed tamsulosin 0.4 mg capsule (Flomax) 0.4 mg PO QHS 11/30/21 12/26/22 testosterone 50 mg implant pellet mg implant 04/03/22 12/26/22 Allergies Allergy/AdvReac Type Severity Reaction Status Date / Time No Known Allergies Allergy Verified 04/26/23 12:38 Review of Systems Review of Systems: CONSTITUTIONAL: Denies body aches, chills, or sweats.+ subjective fever EYES: Denies visual changes, redness, or discharge. ENT: Denies rhinorrhea, sore throat, or otalgia.+ congestion, hoarse CARDIOVASCULAR: Denies chest pain, palpitations, or edema. RESPIRATORY: Denies dyspnea.+ cough GASTROINTESTINAL: Denies abdominal pain, nausea, vomiting, or diarrhea. GENITOURINARY: Denies dysuria or hematuria. SKIN: Denies rash, itching, or wounds. MUSCULOSKELETAL: Denies back pain, joint pain, or myalgia. NEUROLOGIC: Denies numbness, tingling, or weakness.+ headache, dizziness PSYCH: Denies depression or anxiety. [facility] Past Medical History Medical History Acute abdominal pain in right flank Acute bronchitis Acute non-recurrent maxillary sinusitis Acute respiratory failure with hypoxia Acute serous otitis media, left ear Adult situational stress disorder (~09/2022) marital stress Atypical chest pain Bimalleolar ankle fracture Bleeding from the nose BMI 30.0-30.9,adult BMI 32.0-32.9,adult BMI 35.0-35.9,adult BMI 36.0-36.9,adult BPH without obstruction/lower urinary tract symptoms (~2021) Chronic left shoulder pain Chronic thoracic back pain Colon cancer screening Confusion CT of the brain unremarkable on 06/12/2021 except for lytic lesions in the left frontal bone Controlled diabetes mellitus type II without complication Glucose 135 and hemoglobin A1c 5.9 With urine microalbumin ratio of 2 on 03/14/2022. Glucose 127 with hemoglobin A1c 5.7 on 09/03/2022. COVID-19 (11/15/20) rapid test positive on 11/18/2020. treated with azithromycin, ivermectin, monoclonal antibodies, and admitted to hospital 11/26 through 12/03/2020 DVT prophylaxis Dyspnea on exertion chest x-ray 06/05/2021 was normal. COVID pneumonia resolved. PFT on 11/09/2022 was normal. Elevated liver enzymes AST 27, ALT 41 on 03/14/2022. AST 30, ALT 27 on 09/03/2022. Encounter for prostate cancer screening PSA 0.61 on 05/16/2021. PSA 0.66 on 10/22/2022. Epigastric abdominal tenderness Essential (primary) hypertension Full code status Hypersomnia Hypogonadism male (05/29/21) total testosterone low at 167 with free testosterone low at 29.8 on 05/29/2021. Total testosterone 11 193 with free testosterone elevated at 438.5 on 03/14/2022. Insomnia Lytic bone lesions on xray (06/12/21) cluster of lytic bone lesions left frontal bone on CT of the brain 06/12/2021 . Bone scan 06/21/2021 with lesion appearing to be a benign hemangioma with no other bone lesions noted on total body bone scan. Male erectile dysfunction, unspecified Mixed hyperlipidemia Total cholesterol 154, triglycerides 151, HDL 41, LDL 88 on 03/14/2022. Total cholesterol 137, triglycerides 100, HDL 45, LDL 73 with ratio of 3.0 on
== END 2023-04-26 12:49 | disposition home or self-care (01) ==
LOC: EXPGOSH 12:21
PROVIDERS: Emergency Provider Nurse Practitioner
DX: J06.9 Acute upper respiratory infection, unspecified (principal); Z87.891 Personal history of nicotine dependence; E11.9 Type 2 diabetes mellitus without complications; Z79.84 Long term (current) use of oral hypoglycemic drugs; I10 Essential (primary) hypertension; E78.2 Mixed hyperlipidemia; E66.9 Obesity, unspecified; Z68.30 Body mass index [BMI] 30.0-30.9, adult
CPT/HCPCS: 99213; G0463